=== PATIENT | male | born 1995 | race Two or more races ===

== ENCOUNTER 2024-06-11 21:12 | Emergency (ER) | payer SELFPAY ==
--- NOTE | 2024-06-11 21:13 | ED.GENADUL1 ---
HPI HPI - General Adult General Chief complaint: Dental/Oral Stated complaint: Dental Pain Time Seen by Provider: 06/11/24 21:13 Source: patient History of Present Illness HPI narrative: Patient is a 28-year-old male who is [place]-speaking who presents to the ER for a 1 day history of swelling to the left maxilla with associated facial swelling. He has a history of dental caries and multiple broken teeth. He denies any new mechanism of injury or trauma today. He has not had any objective fevers or vomiting but he states he feels unwell. There has been no purulent drainage from the area. History and physical were conducted with [place] language interpreting service. Related Data Previous Rx's ?Medication ?Instructions ?Recorded clindamycin HCl 150 mg capsule 300 mg (2 x 150 mg) PO Q6H 10 days 06/11/24 #80 caps hydrocodone 5 mg-acetaminophen 325 1 tab PO Q6H PRN pain 3 days #12 06/11/24 mg tablet tabs ketorolac 10 mg tablet 10 mg PO TID PRN pain #10 tabs 06/11/24 ondansetron 4 mg disintegrating 4 mg PO Q6H PRN nausea and 06/11/24 tablet vomiting #12 tabs Allergies Allergy/AdvReac Type Severity Reaction Status Date / Time No Known Drug Allergies Allergy Verified 06/11/24 21:14 Opioid HPI Opioid Management Most Recent Opioid Data: No Data to Display Review of Systems ROS Constitutional Denies: fever or chills Ears, nose, mouth, and throat Reports: mouth pain; Denies: throat pain Respiratory Denies: shortness of breath Gastrointestinal Denies: nausea or vomiting Integumentary/Breast Denies: rash Neurological Denies: numbness in extremities or weakness in extremities Hematologic/Lymphatic Denies: easy bruising or easy bleeding Exam Narrative Exam Narrative: Gen.: Awake, alert, in no distress Head: Normocephalic, atraumatic ENT: Moist mucous membranes, moderate swelling over the left maxilla with no fluctuance of the face. Multiple dental caries noted with tenderness over tooth tooth #14 with partial avulsion and root exposure. Tooth #13 is absent. No trismus or drooling. No redness or swelling under the tongue. Left TM is clear. Speech is clear, no hoarse or muffled voice. Airway widely open and patent Respiratory: No respiratory distress Extremities: Moves extremities equally Psych: Normal mood and affect Neuro: No focal neuro deficit Skin: Warm, dry, intact Constitutional Vital Signs, click to edit/add: Last Vital Signs Temp 100.2 F 06/11/24 21:16 Pulse 103 H 06/11/24 21:16 Resp 14 06/11/24 21:16 BP 181/86 H 06/11/24 21:16 Pulse Ox 99 06/11/24 21:16 O2 Del Method Room Air 06/11/24 21:16 Course Vital Signs Vital signs: Vital Signs Temperature 100.2 F 06/11/24 21:16 Pulse Rate 103 H 06/11/24 21:16 Respiratory Rate 14 06/11/24 21:16 Blood Pressure 181/86 H 06/11/24 21:16 Pulse Oximetry 99 06/11/24 21:16 Oxygen Delivery Method Room Air 06/11/24 21:16 Temperature 100.2 F 06/11/24 21:16 Pulse Rate 103 H 06/11/24 21:16 Respiratory Rate 14 06/11/24 21:16 Blood Pressure 181/86 H 06/11/24 21:16 Pulse Oximetry 99 06/11/24 21:16 Oxygen Delivery Method Room Air 06/11/24 21:16 Medical Decision Making MDM Narrative Medical decision making narrative: Explained to the patient that we do not pull teeth in the emergency department. Exam is consistent with a dental abscess. He will need to take antibiotics and follow-up with a dentist. He was given a first dose of clindamycin IV given dental abscess and swelling. He appears well-hydrated and nontoxic. Pain medication given with topical analgesia and clindamycin for home. Work note provided. Patient was given a list of dentist to follow-up with. Return to the ER if symptoms change or worsen SUPERVISED APC VISIT, PHYSICIAN ATTESTATION: Based on the medical record the care appears appropriate. ? Medical Records Medical records reviewed: Yes I reviewed the patient's medical records Discharge Plan Discharge Chief Complaint: Dental/Oral Clinical Impression: Dental abscess, Atypical face pain Patient Disposition: Home, Self-Care Time of Disposition Decision: 21:27 Condition: Good Prescriptions / Home Meds: New hydrocodone-acetaminophen 5-325 mg tablet 1 tab PO Q6H PRN (Reason: pain) 3 Days Qty: 12 0RF Rx Instructions: DX: K08.89 clindamycin HCl 150 mg capsule 300 mg PO Q6H 10 Days Qty: 80 0RF ketorolac 10 mg tablet 10 mg PO TID PRN (Reason: pain) Qty: 10 0RF ondansetron 4 mg tablet,disintegrating 4 mg PO Q6H PRN (Reason: nausea and vomiting) Qty: 12 0RF Print Language: [place] Instructions: Dental Abscess (ED) Additional Instructions: Follow up with Dental Referrals: Physician,Non-Staff, MD [Primary Care Provider] - 1 week Discharge Date/Time: 06/11/24 22:30
[2024-06-11 21:16] VITALS: BP 181/86; PULSE 103; TEMP 37.9; O2SAT 99; BMI 20.7
[2024-06-11] MEDS: CLINDAMYCIN PHOSPHATE/D5W 900 MG/50 ML PREMIX 100 MG IV (21:40)
[2024-06-11] MEDS: OXYCODONE HCL/ACETAMINOPHEN 5MG/325MG 2 TAB PO (21:40)
[2024-06-11] MEDS: HYDROMORPHONE HCL 1 MG/ML CARTRIDGE IV (21:41)
[2024-06-11] MEDS: BENZOCAINE 30 ML, lidocaine HCL 15 ML MM (21:41)
[2024-06-11] MEDS: ONDANSETRON PF 4 MG/2 ML VIAL IV (21:42)
[2024-06-11] MEDS: KETOROLAC TROMETHAMINE 30 MG/ML VIAL IVP (21:42)
== END 2024-06-11 22:30 | disposition home or self-care (01) ==
PROVIDERS: Emergency Provider Internal Medicine
DX: K04.7 Periapical abscess without sinus (principal); G50.1 Atypical facial pain; R50.9 Fever, unspecified; K02.9 Dental caries, unspecified
CPT/HCPCS: 96365; 96375; 99284; J0736; J1171; J1885; J2405